=== PATIENT | male | born 1985 | race Caucasian/White ===

== ENCOUNTER 2018-08-09 14:48 | Emergency (ER) | payer OTHER ==
[2018-08-09 14:54] VITALS: BP 120/86; RESP 18; TEMP 99.3; O2SAT 98
--- NOTE | 2018-08-09 17:14 | RAD ---
Date of service: 08/09/2018 PROCEDURE: Radiographs of the Lumbar Spine. HISTORY: Back pain COMPARISON: No prior. TECHNIQUE: 3 views obtained. FINDINGS: BONES: There is normal alignment of the lumbar vertebral bodies. There is exaggerated lumbar lordosis. There is no acute fracture or spondylolysis. Bone mineralization is normal. The sacrococcygeal angulation is normal. DISC SPACES: There is moderate degenerative disc disease at L5-S1 with reduced disc height and facet arthropathy. The remaining disc heights are maintained. OTHER FINDINGS: No pathologic soft tissue calcifications. The sacroiliac joints are normal. IMPRESSION: No acute fracture or spondylolysis. Moderate degenerative disc disease at L5-S1.
--- NOTE | 2018-08-09 17:15 | RAD ---
Date of service: 08/09/2018 HISTORY: pain COMPARISON: No prior. TECHNIQUE: 2 views obtained. FINDINGS: BONES: There is normal alignment of the thoracic vertebral bodies. There is normal thoracic kyphosis. There is no acute fracture or bone destruction. Bone alignment is normal. DISC SPACES: There is degenerative disc disease in the lower thoracic spine with reduced disc heights, Schmorl's nodes and anterior osteophytes. SOFT TISSUES: Normal. OTHER FINDINGS: None. IMPRESSION: Multilevel degenerative disc disease in the lower thoracic spine. No acute fracture.
[2018-08-09 17:18] VITALS: PULSE 80
--- NOTE | 2018-08-09 18:03 | C.PDOC ---
History Of Present Illness 32 year old male with a history of degenerative disc disease presents to the emergency department with complaints of right mid back pain status-post bending down to pick something up at 10AM this morning. Patient states that upon bending down he felt excruciating pain in the right paraspinal musculature, shooting down to the lumbar region. Patient states that he went to lay down shortly after onset of the pain, and states that it would worsen with movement. He denies trauma, falls, abdominal pain, fever, chills, bowel/bladder dysfunction. Time Seen by Provider: 08/09/18 15:17 Chief Complaint (Nursing): Back Pain History Per: Patient History/Exam Limitations: no limitations Onset/Duration Of Symptoms: Hrs Current Symptoms Are (Timing): Still Present Quality Of Discomfort: "Pain" Previous Symptoms: Back Pain Associated Symptoms: None Exacerbating Factor(s): Movement Past Medical History Reviewed: Historical Data, Nursing Documentation, Vital Signs Vital Signs: Last Vital Signs Temp 99.3 F 08/09/18 14:50 Pulse 80 08/09/18 17:18 Resp 18 08/09/18 14:50 BP 120/86 08/09/18 14:50 Pulse Ox 98 08/09/18 17:18 Primary Care Provider: FAMILY PROVIDER,NO - Medical History PMH: Back Problems (Lumbar problems) Surgical History: No Surg Hx Family History: States: No Known Family Hx - Social History Hx Alcohol Use: No Hx Substance Use: No - Immunization History Hx Tetanus Toxoid Vaccination: No Hx Influenza Vaccination: No Hx Pneumococcal Vaccination: No Review Of Systems Constitutional: Negative for: Fever, Chills Cardiovascular: Negative for: Chest Pain Respiratory: Negative for: Cough, Shortness of Breath Gastrointestinal: Negative for: Nausea, Vomiting, Abdominal Pain Genitourinary: Negative for: Dysuria, Frequency, Incontinence, Hematuria Musculoskeletal: Positive for: Back Pain Physical Exam - Physical Exam Appears: Non-toxic, No Acute Distress Skin: Normal Color, Warm, Dry Head: Atraumatic, Normacephalic Eye(s): bilateral: Normal Inspection Neck: Normal, Supple Back: No CVA Tenderness, No Vertebral Tenderness (No TTP down bony thoracic or lumbar spine or musculature.), Decreased ROM (due to pain), No Paraspinal Tenderness, Other Extremity: Normal ROM Neurological/Psych: Oriented x3, Normal Speech, Normal Cognition ED Course And Treatment O2 Sat by Pulse Oximetry: 98 (RA) Pulse Ox Interpretation: Normal - Other Rad XR L-Spine X-Ray: Viewed By Me, Read By Radiologist Interpretation: IMPRESSION: No acute fracture or spondylolysis. Moderate degenerative disc disease at L5-S1. XR T-Spine X-Ray: Viewed By Me, Read By Radiologist Interpretation: IMPRESSION: Multilevel degenerative disc disease in the lower thoracic spine. No acute fracture. Medical Decision Making Medical Decision Making: Plan: EKG XR Lumbar Spine Toradol 60mg IM Valium 5mg PO XR T-Spine XR LS Spine A/P Lat Disposition Counseled Patient/Family Regarding: Studies Performed, Diagnosis, Need For Followup, Rx Given - Disposition Referrals: [facility] [Outside] [facility] [Outside] Disposition: HOME/ ROUTINE Disposition Time: 18:00 Condition: STABLE Additional Instructions: PAVITHRA PEDROZA, thank you for letting us take care of you today. Your provider was Jeanie Mckeon MD and you were treated for LOWER BACK PAIN. The emergency medical care you received today was directed at your acute symptoms. If you were prescribed any medication, please fill it and take as directed. It may take several days for your symptoms to resolve. Return to the Emergency Department if your symptoms worsen, do not improve, or if you have any other problems. Please contact your doctor or call one of the physicians/clinics you have been referred to that are listed on the Patient Visit Information form that is included in your discharge packet. Bring any paperwork you were given at discharge with you along with any medications you are taking to your follow up visit. Our treatment cannot replace ongoing medical care by a primary care provider outside of the emergency department. Thank you for allowing the [facility] team to be part of your care today. Prescriptions: Cyclobenzaprine [Cyclobenzaprine HCl] 10 mg PO TID PRN #20 tab PRN Reason: Muscle Spasm Naproxen [Naprosyn] 500 mg PO BID PRN #30 tablet PRN Reason: Pain, Moderate (4-7) Instructions: Low Back Pain (DC), Muscle Strain (DC), Upper Back Pain (DC) Forms: [facility] ([place]an), General Discharge Instructions - POA Present On Arrival: None - Clinical Impression Clinical Impression: Thoracic back pain, Back strain - Scribe Statement The provider has reviewed the documentation as recorded by the Scribe (Daryl Strauss) Provider Attestation: All medical record entries made by the Scribe were at my direction and personally dictated by me. I have reviewed the chart and agree that the record accurately reflects my personal performance of the history, physical exam, medical decision making, and the department course for this patient. I have also personally directed, reviewed, and agree with the discharge instructions and disposition.
--- NOTE | 2018-08-11 14:02 | CARD ---
APPROVED REPORT Date of service: 08/09/2018 EKG Measurement Heart [id number] <Conclusion> Sinus tachycardia Possible Left atrial enlargement Borderline ECG
== END 2018-08-09 18:13 | disposition home or self-care (01) ==
LOC: C.ER 14:48
DX: S29.012A Strain of muscle and tendon of back wall of thorax, initial encounter (principal); X50.1XXA Overexertion from prolonged static or awkward postures, initial encounter; M54.6 Pain in thoracic spine
CPT/HCPCS: 72070; 72100; 93005; 96372; 99284; J1885